=== PATIENT | female | born 2000 | race Caucasian/White ===

== ENCOUNTER 2022-11-12 09:16 | Emergency (ER) | payer BC, SELFPAY ==
[2022-11-12 09:32] VITALS: BP 128/83; PULSE 87; RESP 18; TEMP 37.7; O2SAT 98; BMI 29.9
--- NOTE | 2022-11-12 09:54 | CRLHL7_ITS ---
For Patients: As a result of the Century Cures Act, medical imaging exams and procedure reports are released immediately into your electronic medical record. You may view this report before your referring provider. If you have questions, please contact your health care provider. INDICATION: First trimester bleeding. TECHNIQUE: Ultrasound OB pelvis transvaginal. Real-time lezama-scale imaging of the pelvis was performed. COMPARISON: None. FINDINGS: Intrauterine gestation: Present. Embryo present: Yes. Embryo cardiac activity: 171 BPM. [place] rump Length: 3.2 cm. Sonographic gestational age: 10 weeks 1 day. Sonographic estimated due date: June 09, 2023. Yolk sac: Normal. Perigestational hemorrhage: Small. Ovaries and adnexae: Unremarkable. No suspicious lesions or fluid collections. IMPRESSION: Single viable intrauterine with an estimated ultrasound age of 10 weeks 1 day. Very small subchorionic hemorrhage present. No other abnormality Dictated by Ezequiel Figueroa MD @ 11/12/2022 11:15:49 AM (Electronically Signed)
[2022-11-12 11:31] LABS: Appearance Urine Clear (Clear); Bilirubin Urine Negative (Negative); Blood Urine Negative (Negative); Color Urine Yellow (Yellow); Glucose Urine Negative (Negative); Ketones Urine Negative (Negative); Leukocyte Esterase Urine Negative (Negative); Nitrite Urine Negative (Negative); Protein Urine Negative (Negative); Specific Gravity Urine 1.025 (1.000-1.030); Urobilinogen Urine 0.2 (0.2-1.0)
[2022-11-12 11:47] LABS: Bacteria Urine Few; RBC Urine 0-2 (0-2); Squamous Epithelial Cell Urine Few (None-Few); WBC Urine 0-2 (0-5)
[2022-11-12 12:07] VITALS: BP 128/83; PULSE 87; RESP 18; TEMP 37.7
--- NOTE | 2022-11-12 12:57 | ED_ITS ---
HPI - General Date Seen: 11/12/22 Chief complaint: Vaginal Bleeding Stated complaint: 10 weeks , bleeding/cramping Time Seen by Provider: 11/12/22 10:51 Source: patient Mode of arrival: ambulatory Limitations: no limitations History of Present Illness HPI Narrative: Patient is a 22-year-old at 10 weeks gestation, presents here with vaginal bleeding and spotting, for the last 6-12 hours, she has some mild lower cramping associated with this. Schedule for ultrasound on with her OBGYN is due to ongoing problems and being somewhat of a high risk . She has had some bleeding on off with this , has a known subchorionic hemorrhage. The bleeding became a little worse today with some cramping, so she came into the emergency room to be seen. She is Rh positive. She says her hemoglobins have been trending down. But not very low. 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 Two previous miscarriages, was taking some vitamins with the iron in this pain her very nauseous. No other medications currently, denies any fevers chills or sweats, dysuria frequency of urination or other issues no history of trauma denies any other significant vaginal discharge. Ten weeks , and 2 days. Patient : Yes Related Data Home Medications Medication Instructions Recorded Confirmed No Known Home Medications 11/12/22 11/12/22 Allergies Allergy/AdvReac Type Severity Reaction Status Date / Time albuterol Allergy Rash Verified 11/12/22 09:38 amoxicillin Allergy Shakiness Verified 11/12/22 09:38 Review of Systems Status of ROS: Reports: 10 or more systems reviewed and unremarkable except as noted in History and below Exam Narrative: Exam Narrative: On examination her abdomen is soft, there is no guarding no organomegaly, bowel sounds are normal, no CVA tenderness. Const: Vital Signs, click to edit/add: Vital Signs - 24 hr 11/12/22 09:32 11/12/22 12:07 Temperature 99.8 F H 99.8 F H Pulse Rate [Left P ulse Oximeter] 87 87 Respiratory Rate 18 18 Blood Pressure [Le ft Upper Arm] 128/83 128/83 Pulse Oximetry 98 Oxygen Delivery Me thod Nasal Cannula Documenting provider has reviewed patient's vital signs: yes Course Course Hospital Course: Discussed with the patient reassuring ultrasound showing intact fetus, and a small subchorionic hemorrhage, which she tells me is not really changed. I would lower go home pelvic rest, no intercourse, increasing bleeding, nausea vo miting or other issue she should come back, we did check her urine which showed no evidence of UTI. Vital Signs Vital signs: Initial Vital Signs Temperature 99.8 F H 11/12/22 09:32 Temperature Source Temporal Artery Scan 11/12/22 09:32 Pulse Rate 87 11/12/22 09:32 Pulse Rhythm Regular 11/12/22 09:32 Pulse Strength 3+ Normal 11/12/22 09:32 Respiratory Rate 18 11/12/22 09:32 Blood Pressure 128/83 11/12/22 09:32 Blood Pressure Mean 98 11/12/22 09:32 Blood Pressure Position Sitting 11/12/22 09:32 Pulse Oximetry 98 11/12/22 09:32 Oxygen Delivery Method Nasal Cannula 11/12/22 09:32 Vital Signs Temperature 99.8 F H 11/12/22 09:32 Pulse Rate 87 11/12/22 09:32 Respiratory Rate 18 11/12/22 09:32 Blood Pressure 128/83 11/12/22 09:32 Pulse Oximetry 98 11/12/22 09:32 Oxygen Delivery Method Nasal Cannula 11/12/22 09:32 Temperature 99.8 F H 11/12/22 12:07 Pulse Rate 87 11/12/22 12:07 Respiratory Rate 18 11/12/22 12:07 Blood Pressure 128/83 11/12/22 12:07 Pulse Oximetry 98 11/12/22 09:32 Oxygen Delivery Method Nasal Cannula 11/12/22 09:32 MDM - OB/Uterine Contractions MDM Narrative Medical decision making narrative: Differential diagnosis includes but is not limited to uterine fibroids, intrauterine , ectopic , placenta previa, spontaneous , and cancers of the uterus and cervix. This includes the life- threatening complications of hypovolemia secondary to bleeding, ectopic and cancer. Medical Records Attestation: I reviewed the patient's medical records. Lab Data Attestation: I reviewed the patient's lab results. Labs: Lab Results 11/12/22 Range/Units 11:24 Urine Color Yellow (Yellow) Urine Appearance Clear (Clear) Urine pH 7.0 (5.0-8.5) Ur Specific [place] 1.025 (1.000-1.030) Urine Protein Negative (Negative) Urine Glucose (UA) Negative (Negative) Urine Ketones Negative (Negative) Urine Blood Negative (Negative) Urine Nitrite Negative (Negative) Urine Bilirubin Negative (Negative) Urine Urobilinogen 0.2 (0.2-1.0) Ur Leukocyte Esterase Negative (Negative) Urine RBC 0-2 (0-2) Urine WBC 0-2 (0-5) Ur Squamous Epith Cells Few (None-Few) Urine Bacteria Few A (None) Imaging Data Pelvic ultrasound: Radiologist's impression: Patient: KERMIT DE Facility:?[facility] Patient ID:?[id number] Site Patient ID:?[id number]. Site :?[id number] Study:? OB Pelvis TV-11/12/2022 10:55:39 AM Ordering Physician:?PROVIDER TEMP Final Report: INDICATION: First trimester bleeding. TECHNIQUE: Ultrasound OB pelvis transvaginal. Real-time lezama-scale imaging of the pelvis was performed. COMPARISON: None. FINDINGS: Intrauterine gestation: Present. Embryo present: Yes. Embryo cardiac activity: 171 BPM. [place] rump Length: 3.2 cm. Sonographic gestational age: 10 weeks 1 day. Sonographic estimated due date: June 09, 2023. Yolk sac: Normal. Perigestational hemorrhage: Small. Ovaries and adnexae: Unremarkable. No suspicious lesions or fluid collections. IMPRESSION: Single viable intrauterine with an estimated ultrasound age of 10 weeks 1 day. Very small subchorionic hemorrhage present. No other abnormality Dictated by Ezequiel Figueroa MD @ 11/12/2022 11:15:49 AM (Electronic Signature) Discharge Plan Discharge Clinical Impression: Vaginal bleeding, Threatened miscarriage, , Subchorionic bleed Patient Disposition: Home, Self-Care Condition: Stable Instructions: Threatened Miscarriage (ED), Subchorionic Hemorrhage (ED), at 11 to 14 Weeks (ED) Additional Instructions: Home rest no heavy lifting greater than 20 lb, no sexual encounters, for the next 2 weeks, follow-up with OBGYN, return if increasing bleeding. Prescriptions: No Action No Known Home Medications Follow Up/Referrals: Provider,Not a Local [Primary Care Provider] - Stand Alone Forms: [email or web address] Info Instructions
== END 2022-11-12 12:00 | disposition home or self-care (01) ==
PROVIDERS: Emergency Provider Family Medicine
DX: O20.0 Threatened abortion (principal); O46.8X9 Other antepartum hemorrhage, unspecified trimester
CPT/HCPCS: 76817; 81001; 87086; 99284